=== PATIENT | female | born 2000 | race Caucasian/White ===

== ENCOUNTER 2022-03-08 09:57 | Inpatient (IN) ==
[2022-03-08] MEDS ORDERED: Famotidine 20 MG/2 ML VIAL IVP PRN (10:35)
[2022-03-08] MEDS ORDERED: miSOPROStoL 25 MCG TABLET PO PRN (10:35)
[2022-03-08] MEDS ORDERED: *HR* Nalbuphine 10 MG/ML AMPUL IV PRN (10:35)
[2022-03-08] MEDS ORDERED: Ondansetron 4 MG/2 ML VIAL IVP PRN (10:35)
[2022-03-08] MEDS ORDERED: Metoclopramide 10 MG/2 ML VIAL IVP PRN (10:35)
[2022-03-08] MEDS ORDERED: Azithromycin 500 MG in 0.9 % Sodium Chloride 250 ML IVPB PRN (10:35)
[2022-03-08] MEDS ORDERED: Naloxone 0.4 MG/ML INJ IVP PRN (10:35)
[2022-03-08 11:00] LABS: Basophils % 0.4 %; Eosinophils # 0.1 K/mcL (0.0-0.6); Eosinophils % 0.9 %; Hematocrit 39.3 % (35.3-44.9); Hemoglobin 13.3 g/dL (11.5-15.4); Immature Granulocytes % 0.5 % (0-4); Lymphocytes # 1.2 K/mcL (0.6-4.6); Lymphocytes % 14.7 %; Mean Corpuscular HGB Conc 33.8 g/dL (31.6-35.5); Mean Corpuscular Hemoglobin 31.6 pg (28.0-33.3); Mean Corpuscular Volume 93.3 fL (83.0-100.0); Mean Platelet Volume 9.9 fL (9.4-12.4); Monocytes # 0.2 K/mcL (0.0-1.3); Neutrophils # 6.3 K/mcL (1.6-8.9); Platelet Count 248 K/mcL (140-400); Red Blood Count 4.21 M/mcL (3.82-4.97); Red Cell Distribution Width 12.6 % (11.5-14.5); Segmented Neutrophils % 80.5 %; White Blood Count 7.9 K/mcL (4.3-11.1)
[2022-03-08 11:09] LABS: Amphetamine Screen,Urine Negative ng/mL (Cutoff=1000); Barbiturate Screen,Urine Negative ng/mL (Cutoff=200); Benzodiazepines Screen,Urine Negative ng/mL (Cutoff=200); Cannabinoid Screen,Urine Negative ng/mL (Cutoff = 50); Cocaine Screen,Urine Negative ng/mL (Cutoff= 300); Opiate Screen,Urine Negative ng/mL (Cutoff=300); Phencyclidine Screen,Urine Negative ng/mL (Cutoff=25)
[2022-03-08] MEDS ORDERED: EPHEDrine 50 MG/ML VIAL IVP PRN (11:49)
[2022-03-08] MEDS ORDERED: Epidural Premix (fent/bupiv) 110 ML EP SCH (12:00)
[2022-03-08] MEDS ORDERED: Ringers Solution, Lactated 1,000 ML ONE ×2 (16:40→16:58)
[2022-03-08] MEDS ORDERED: Oxytocin 30 UNIT/503 ML BAG IVC ONE (21:33)
[2022-03-09] MEDS ORDERED: Lanolin 7 G OINT...G. TP PRN (01:45)
[2022-03-09] MEDS ORDERED: Oxytocin 30 UNIT/503 ML BAG IVC SCH (01:45)
[2022-03-09] MEDS ORDERED: Rho Immune Globulin 1,500 UNIT SYRINGE IM PRN (01:45)
[2022-03-09] MEDS ORDERED: Benzocaine/Menthol 56 GM AEROSOL SPRAY TP PRN (01:45)
[2022-03-09] MEDS ORDERED: Ondansetron ODT 4 MG TAB.RAPDIS SL PRN (01:45)
[2022-03-09] MEDS ORDERED: Measles/Mumps/Rubella Vacc 0.5 ML VIAL SQ PRN (01:45)
[2022-03-09] MEDS: Ibuprofen 600 MG TABLET PO SCH ×3 (03:00→20:55)
[2022-03-09] MEDS: Acetaminophen 325 MG TABLET PO SCH ×3 (04:52→20:54)
[2022-03-09 05:17] LABS: Basophils % 0.3 %; Eosinophils % 0.1 %; Hemoglobin 12.4 g/dL (11.5-15.4); Immature Granulocytes % 0.5 % (0-4); Lymphocytes # 1.2 K/mcL (0.6-4.6); Lymphocytes % 8.9 %; Mean Corpuscular HGB Conc 35.4 g/dL (31.6-35.5); Mean Corpuscular Hemoglobin 32.2 pg (28.0-33.3); Mean Corpuscular Volume 90.9 fL (83.0-100.0); Mean Platelet Volume 9.6 fL (9.4-12.4); Monocytes # 0.7 K/mcL (0.0-1.3); Monocytes % 5.1 %; Neutrophils # 11.8 K/mcL (1.6-8.9); Platelet Count 205 K/mcL (140-400); Red Blood Count 3.85 M/mcL (3.82-4.97); Red Cell Distribution Width 12.3 % (11.5-14.5); Segmented Neutrophils % 85.1 %
[2022-03-09 05:18] LABS: White Blood Count 13.9 K/mcL (4.3-11.1)
[2022-03-09] MEDS: Prenatal Vit/FA 1 EACH TABLET PO SCH (08:38)
[2022-03-10] MEDS: Ibuprofen 600 MG TABLET PO SCH (05:11)
[2022-03-10] MEDS: Acetaminophen 325 MG TABLET PO SCH (05:11)
[2022-03-10 06:59] VITALS: BP 116/72; PULSE 71; TEMP 98; O2SAT 96
[2022-03-10] MEDS: Prenatal Vit/FA 1 EACH TABLET PO SCH (08:20)
== END 2022-03-10 08:27 | disposition home or self-care (01) | DRG 807 ==
LOC: 1NENULAB 09:57 → 1NENUOBS 03-09 01:43
PROVIDERS: ADMIT Obstetrics & Gynecology; ATTEND Obstetrics & Gynecology